=== PATIENT | female | born 1935 | race Caucasian/White ===

== ENCOUNTER 2021-06-18 14:30 | Observation (INO) ==
[2021-06-18] MEDS ORDERED: Melatonin 3 MG TABLET PO PRN (17:42)
[2021-06-18] MEDS ORDERED: Naloxone 0.4 MG/ML INJ IVP PRN (17:42)
[2021-06-18 17:57] LABS: Basophils % 0.2 %; Eosinophils # 0.2 K/mcL (0.0-0.6); Eosinophils % 2.7 %; Hematocrit 34.4 % (35.3-44.9); Hemoglobin 10.9 g/dL (11.5-15.4); Immature Granulocytes % 0.5 % (0-4); Lymphocytes % 33.6 %; Mean Corpuscular HGB Conc 31.7 g/dL (31.6-35.5); Mean Corpuscular Hemoglobin 30.6 pg (28.0-33.3); Mean Corpuscular Volume 96.6 fL (83.0-100.0); Mean Platelet Volume 9.3 fL (9.4-12.4); Monocytes # 0.6 K/mcL (0.0-1.3); Monocytes % 6.4 %; Platelet Count 278 K/mcL (140-400); Red Blood Count 3.56 M/mcL (3.82-4.97); Red Cell Distribution Width 15.6 % (11.5-14.5); Segmented Neutrophils % 56.6 %; White Blood Count 8.8 K/mcL (4.3-11.1)
[2021-06-18 18:19] LABS: Albumin 3.5 g/dL (3.5-5.7); Albumin/Globulin Ratio 1.3 (1.1-2.2); Bilirubin,Total 0.3 mg/dL (0.3-1.0); Calcium 9.3 mg/dL (8.6-10.3); Globulin 2.6 g/dL (2.4-3.5); Potassium 4.1 mEq/L (3.5-5.1); Total Protein 6.1 g/dL (6.4-8.9)
[2021-06-18 18:31] LABS: Thyroid Stimulating Hormone 3.731 mcIU/mL (0.340-5.600)
[2021-06-18] MEDS ORDERED: Dextrose Gel 15 GM/37.5 ML TUBE PO PRN ×2 (18:56)
[2021-06-18] MEDS ORDERED: *HR* Dextrose 50 % in Water (Syg) 50 ML SYRINGE IVP PRN (18:56)
[2021-06-18] MEDS ORDERED: D5% in Water 1,000 ML IVC PRN (18:56)
[2021-06-18] MEDS: Insulin LISPRO 300 UNITS/3 ML VIAL SUBQ SCH (19:47)
[2021-06-18] MEDS: 0.9 % Sodium Chloride 1,000 ML IVC SCH (22:08)
[2021-06-19 06:18] LABS: INR 0.9; Prothrombin Time 10.1 Seconds (9.4-12.1)
[2021-06-19 06:33] LABS: Alanine Aminotransferase 14 Units/L (7-52); Albumin 3.3 g/dL (3.5-5.7); Albumin/Globulin Ratio 1.5 (1.1-2.2); Alkaline Phosphatase 75 Units/L (34-104); Aspartate Amino Transferase 14 Units/L (13-39); BUN/Creatinine Ratio 21 (6-26); Bilirubin,Total 0.5 mg/dL (0.3-1.0); Blood Urea Nitrogen 25 mg/dL (8-23); Calcium 9.2 mg/dL (8.6-10.3); Carbon Dioxide 25 mEq/L (23-29); Chloride 108 mEq/L (98-107); Chol/HDL Ratio 5.3 (0-4.9); Cholesterol 250 mg/dL (< 200); Globulin 2.2 g/dL (2.4-3.5); Glucose 150 mg/dL (70-105); HDL Cholesterol 47 mg/dL (40-59); LDL Cholesterol,Calculated 168 mg/dL (< 100); Osmolality,Calculated 297 (280-300); Potassium 3.9 mEq/L (3.5-5.1); Sodium 140 mEq/L (136-145); Total Protein 5.5 g/dL (6.4-8.9); Triglycerides 175 mg/dL (< 150); Troponin I < 0.03 ng/mL (< 0.04); eGFR For African Americans 51 (> 60); eGFR For Non-African Americans 42 (> 60)
[2021-06-19] MEDS ORDERED: Perflutren Lipid Microsphere 1.3 ML in 0.9 % Sodium Chloride 8.7 ML IVP PRN (07:44)
[2021-06-19] MEDS: Insulin LISPRO 300 UNITS/3 ML VIAL SUBQ SCH ×3 (08:16→18:15)
[2021-06-19] MEDS: Aspirin Enteric Coated 81 MG Tablet PO SCH (08:16)
[2021-06-19 10:39] LABS: Estimated Average Glucose 180 mg/dl; Hemoglobin A1C 7.9 %
[2021-06-19] MEDS: *HR* Heparin 5,000 UNIT/ML VIAL SQ SCH (18:15)
[2021-06-20] MEDS: 0.9 % Sodium Chloride 1,000 ML IVC SCH ×3 (00:35→11:16)
[2021-06-20 04:21] VITALS: PULSE 75
[2021-06-20] MEDS: *HR* Heparin 5,000 UNIT/ML VIAL SQ SCH (05:57)
[2021-06-20 07:12] VITALS: BP 136/53; TEMP 97.8; O2SAT 98
[2021-06-20] MEDS: Insulin LISPRO 300 UNITS/3 ML VIAL SUBQ SCH ×2 (07:36→11:16)
[2021-06-20] MEDS: Aspirin Enteric Coated 81 MG Tablet PO SCH (07:37)
== END 2021-06-20 12:30 | disposition home or self-care (01) ==
LOC: 3BNU → SUATTDRO 16:24
PROVIDERS: ADMIT Hospitalist; ATTEND Internal Medicine